=== PATIENT | female | born 1960 | race Caucasian/White ===

== ENCOUNTER 2024-03-26 11:03 | Observation (INO) ==
[~2024-03-26 11:03] MED LIST: cefOXitin SOD 2,000 MG VIAL IV SCH
[2024-03-26 12:18] LABS: Basophils # (auto) 0.04 K/uL (0.00-0.20); Basophils % (auto) 0.4 %; Eosinophils # (auto) 0.03 K/uL (0.00-0.50); Eosinophils % (auto) 0.3 %; Hematocrit (blood only) 43.3 % (37.0-47.0); Hemoglobin 14.5 g/dl (12.0-16.0); Immature Granulocytes # (auto) 0.03 K/uL (0.01-0.20); Immature Granulocytes % (auto) 0.3 %; Lymphocytes # (auto) 1.99 K/uL (1.20-3.40); Lymphocytes % (auto) 18.8 %; Mean Corpuscular Hemoglobin 28.8 pg (25.0-34.0); Mean Corpuscular Hgb Conc 33.5 g/dL (32.0-36.0); Mean Corpuscular Volume 86.1 fL (80.0-100.0); Monocytes # (auto) 0.54 K/uL (0.11-0.59); Monocytes % (auto) 5.1 %; Neutrophils # (auto) 7.94 K/uL (1.40-6.50); Neutrophils % (auto) 75.1 %; Platelet Count 391 K/uL (130-400); RDW Coefficient of Variation 13.1 % (11.5-14.5); RDW Standard Deviation 40.6 fL (36.4-46.3); Red Blood Count 5.03 M/uL (4.20-5.40); White Blood Count 10.57 K/ul (4.8-10.8)
--- NOTE | 2024-03-26 12:22 | Emergency Department Note ---
Impression & Plan Incarcerated umbilical hernia ED Provider Note CHIEF COMPLAINT: Lower abdominal pain, redness, irreducible umbilical hernia HISTORY OF PRESENT ILLNESS: This 64-year-old female patient presents to the emergency department via private vehicle for evaluation of lower abdominal pain and redness. The patient states she was seen here 2 days ago for similar symptoms. She states at that time, it was not very red. She was scheduled for outpatient surgery evaluation for an irreducible umbilical hernia and is scheduled to see surgery next week. She states over the past 2 days, the redness and tenderness has been significantly worsening. She states she is passing gas and stool without difficulty. She denies any nausea or vomiting. She is eating and drinking okay. No fever or chills. Patient became concerned for possible infection, noticing there may have been some pus coming from the umbilicus. REVIEW OF SYSTEMS: A 10 system review of systems was performed with positives and pertinent negatives listed in the history of present illness. All other systems were reviewed and are negative. ALLERGIES: NKDA PHYSICAL EXAM: VITALS: Vitals are noted on the nurse's note and reviewed by myself. Vital signs stable. GENERAL: This is a 64-year-old female, in no acute distress, nondiaphoretic, well-developed well-nourished. SKIN: The skin was without rashes, erythema, edema, or bruising. There is no tenting of the skin. Capillary refill less than 2 seconds. HEAD: Normocephalic atraumatic. EYES: Conjunctivae without injection, sclerae without icterus. NECK: Supple without nuchal rigidity. No lymphadenopathy. Cervical spine is nontender. No JVD. HEART: Regular rate and rhythm without murmurs gallops or rubs. LUNGS: Clear to auscultation bilaterally without wheezes, rales or rhonchi. No retractions or accessory muscle use. ABDOMEN: Erythema extending from the umbilicus inferiorly. There is a darker purple in color bulge noted in the inferior aspect of the umbilicus. There is exquisite tenderness to palpation, the patient does not tolerate any palpation or examination of this area. There is no obvious purulent discharge. Abdomen was otherwise soft, nontender, without masses or organomegaly. Positive bowel sounds all 4 quadrants. MUSCULOSKELETAL: No muscle atrophy, erythema, or edema noted. Full range of motion without joint tenderness in all extremities. No tenderness to palpation. Normal gait. Strength 5/5 throughout. NEURO: Patient was alert and oriented to person place and time. No focal neurological deficits. An order was placed for continuous clinical research monitor. The monitor showed a normal sinus rhythm at a ventricular rate of 87 bpm, per my interpretation. EMERGENCY DEPARTMENT COURSE: The patient was seen and evaluated as above. I reviewed prior medical records to include labs and CT imaging which was completed less than 48 hours ago. IV access was obtained, labs were drawn. Labs reviewed. There is no significant leukocytosis or anemia. No thrombocytopenia. Renal, hepatic function and electrolytes without significant abnormality. Lipase 23. I did contact general surgery. I spoke with REAGAN Brady with general surgery. I did request that they consult on this patient. Please see general surgery dictation regarding ongoing management and care as well as final disposition of this patient. It appears that they took the patient to the operating room. I attest that I have personally reviewed the patient medication list. I attest that I have reviewed the patient's blood pressure and it was found to be elevated. GCS: 15 In the evaluation and treatment of this patient the following differential diagnoses were entertained: Incarcerated hernia, infection, cellulitis, abscess, malignancy, among others The chart was completed utilizing [employer] Speech voice recognition software. Grammatical errors, random word insertions, pronoun errors, and incomplete sentences are an occasional consequence of this system due to software limitations, ambient noise, and hardware issues. Any formal questions or concerns about the content, text, or information contained within the body of this dictation should be directly addressed to the provider for clarification. Past Med/Surg History Medical History Irreducible umbilical hernia Social History Smoking Status: Never smoker Preferred Language: Macedonian Feels Safe at Home: Yes Allergies Allergies Allergy/AdvReac Type Severity Reaction Status Date / Time No Known Allergies Allergy Mild Verified 03/26/24 13:21 Home Meds Home Medications Medication Instructions Recorded Confirmed ascorbic acid (vitamin C) 1,000 mg 1 PO DAILY 03/26/24 chewable tablet lisinopril 10 mg tablet 10 mg PO DAILY 03/26/24 03/26/24 multivitamin 1 PO DAILY 03/26/24 Results & Data (ED) Vital Signs Vital Signs - 24 hr 03/26/24 11:18 03/26/24 11:52 03/26/24 12:08 Temperature 37.3 C Temperature Source Temporal Artery Scan Pulse Rate 88 87 Pulse Rate [Apical] 85 Pulse Rhythm [Apical] Regular Pulse Strength [Apical] Normal Respiratory Rate 20 20 Respiratory Effort / Characteristics Non-Labored Spontaneous Non-Labored Spontaneous Respiratory Depth Normal Normal Respiratory Pattern Regular Blood Pressure 162/91 H Blood Pressure [Right Arm] 142/88 H Blood Pressure Mean 114 Blood Pressure Mean [Right Arm] 106 Blood Pressure Position [Right Arm] Pulse Oximetry 97 97 Oxygen Delivery Method Room Air Room Air Sepsis Recent Fever Within 48 Hours No Sepsis New/Unexplained Change in Mental Status No Sepsis Action Taken by Nursing No Action Required 03/26/24 13:25 Temperature 36.7 C Temperature Source Oral Pulse Rate Pulse Rate [Apical] 92 H Pulse Rhythm [Apical] Regular Pulse Strength [Apical] Normal Respiratory Rate 20 Respiratory Effort / Characteristics Non-Labored Spontaneous Respiratory Depth Normal Respiratory Pattern Regular Blood Pressure Blood Pressure [Right Arm] 171/94 H Blood Pressure Mean Blood Pressure Mean [Right Arm] 119 Blood Pressure Position [Right Arm] Semi-fowlers Pulse Oximetry 99 Oxygen Delivery Method Room Air Sepsis Recent Fever Within 48 Hours Sepsis New/Unexplained Change in Mental Status Sepsis Action Taken by Nursing Laboratory Data 03/26/24 12:06 03/26/24 12:06 Lab Results 03/26/24 Range/Units 12:06 WBC 10.57 (4.8-10.8) K/ul RBC 5.03 (4.20-5.40) M/uL Hgb 14.5 (12.0-16.0) g/dl Hct 43.3 (37.0-47.0) % MCV 86.1 (80.0-100.0) fL MCH 28.8 (25.0-34.0) pg MCHC 33.5 (32.0-36.0) g/dL RDW Std Deviation 40.6 (36.4-46.3) fL RDW Coeff of Mckenzie 13.1 (11.5-14.5) % Plt Count 391 (130-400) K/uL MPV 9.0 L (9.4-12.4) fL Immature Gran % (Auto) 0.3 % Neut % (Auto) 75.1 % Lymph % (Auto) 18.8 % [place] % (Auto) 5.1 % Eos % (Auto) 0.3 % Baso % (Auto) 0.4 % Neut # (Auto) 7.94 H (1.40-6.50) K/uL Lymph # (Auto) 1.99 (1.20-3.40) K/uL [place] # (Auto) 0.54 (0.11-0.59) K/uL Eos # (Auto) 0.03 (0.00-0.50) K/uL Baso # (Auto) 0.04 (0.00-0.20) K/uL Immature Gran # (Auto) 0.03 (0.01-0.20) K/uL Sodium 138 (136-145) mmol/L Potassium 4.6 (3.5-5.1) mmol/L Chloride 106 (98-107) mmol/L Carbon Dioxide 23 (21-32) mmol/L Anion Gap 9 (3-11) BUN 12 (6-23) mg/dl Creatinine 0.66 (0.6-1.2) mg/dl Est Cr Clr Drug Dosing 84.1 ml/min Est GFR ( Amer) 109.7 ml/min Est GFR (Non-Af Amer) 94.7 ml/min BUN/Creatinine Ratio 18.2 (10-20) Glucose 104 H (70-99(Fasting)) mg/dl Calcium 9.1 (8.6-10.3) mg/dl Total Bilirubin 0.4 (0.2-1.0) mg/dl AST 19 (13-39) U/L ALT 14 (7-52) U/L Alkaline Phosphatase 64 (34-104) U/L Total Protein 7.4 (6.0-8.3) gm/dl Albumin 4.1 (3.4-5.0) gm/dl Globulin 3.3 (2.5-4.0) gm/dl Albumin/Globulin Ratio 1.2 (0.9-2) Lipase 23 (11-82) U/L Administered Medications Lactated Ringer's (Lr) 1,000 mls @ 0 mls/hr IV .Q0M YVONNE Stop: 04/25/24 13:59 Last Admin: 03/26/24 13:58 Dose: 15 mls/hr Documented By: ALN Discharge Plan Visit Data Chief Complaint: Skin Problem Stated Complaint: HERNIA WORSENING ED Provider: Stef Rand ED Midlevel Provider: Karina Leiva Discharge Problem: Incarcerated umbilical hernia Patient Disposition: Admitted As Inpatient Discharge Instructions Interventions: ED Discharge Assessment Last Done: 03/26/24 13:07 Forms Stand Alone Forms: [employer] Prescriptions Prescriptions: No Action lisinopril 10 mg tablet 10 mg PO DAILY Vitamin C 1,000 mg Tablet,Chewable 1 PO DAILY multivitamin Capsule 1 PO DAILY Referrals Referrals: Min Aceves MD [Primary Care Provider] -
[2024-03-26 12:38] LABS: Albumin Globulin Ratio 1.2 (0.9-2); Albumin Level 4.1 gm/dl (3.4-5.0); BUN Creatinine Ratio 18.2 (10-20); Bilirubin,Total 0.4 mg/dl (0.2-1.0); Calcium 9.1 mg/dl (8.6-10.3); Creatinine Clr Calc Pharmacy 84.1 ml/min; Est GFR (African American) 109.7 ml/min; Est GFR (Non-African American) 94.7 ml/min; Globulin 3.3 gm/dl (2.5-4.0); Potassium 4.6 mmol/L (3.5-5.1); Total Protein 7.4 gm/dl (6.0-8.3)
--- NOTE | 2024-03-26 12:55 | History & Physical Report ---
Date of Service March 26, 2024 Assessment & Plan (1) Incarcerated umbilical hernia: Plan: Her CT images and results from 2 days ago were reviewed and interpreted by myself She likely has necrotic omentum in her hernia that is strangulated Plan on urgent open incarcerated umbilical hernia repair Consent was obtained, risks discussed including bleeding, infection, recurrence, seroma/hematoma History of Present Illness Chief Complaint: Umbilical Hernia Primary Care Provider: Min Aceves MD This is a 64 yo female who presented today with worsening abdominal pain over the last 3 days. This is at the umbilicus, sharp and without radiation. She was seen on 03/24, diagnosed with an incarcerated umbilical hernia and sent home. She came back today due to significant cellulitis of the umbilicus and abdominal wall. She has been eating without N/V. She has been passing flatus. Denies any previous abdominal surgeries. Denies any blood thinners. Allergies Allergy/AdvReac Type Severity Reaction Status Date / Time No Known Allergies Allergy Mild Unverified 09/17/15 21:38 Home Medications Medication Instructions Recorded Confirmed Type CEPHALEXIN (KEFLEX) 1 cap PO TID 7 days #21 caps 12/17/15 Rx Past Med/Surg History Medical History Irreducible umbilical hernia Social History Smoking Status: Never smoker Preferred Language: Mauritian Feels Safe at Home: Yes Review of Systems Constitutional: no fever and no chills Eyes: no blind spots and no worsening vision Ear, Nose, Mouth, Throat: no ear pain and no hearing loss Respiratory: no cough and no dyspnea Cardiovascular: no chest pain and no dyspnea on exertion Gastrointestinal: + abdominal pain; no nausea and no vomit ing Genitourinary: no dysuria and no difficulty urinating Musculoskeletal: no back pain and no neck pain Integumentary: + erythema; no skin ulcer Neurologic: no gait abnormality and no memory loss Psychiatric: no behavioral changes and no depression Hematologic / Lymphatic: no easy bleeding and no easy bruising Physical Exam Constitutional: WD/WN, vitals as above Eyes: PERRL, conjunctivae normal, anicteric sclerae ENMT: external ear and nose normal, oropharynx normal Neck: trachea midline, no thyromegaly Respiratory: normal respiratory effort, lungs clear to auscultation Cardiovascular: RRR, no murmur, no edema Gastrointestinal (Abdomen): Inspection/Auscultation: + visible herniation; + abdomen abnormal to inspection and abdomen not distended Percussion/Palpation: + abdomen tender (periumbilically), + guarding, abdomen soft and + hernia (Incarcerated umbilical hernia with surrounding cellulitis) Musculoskeletal: no cyanosis or clubbing, extremities motor strength 5/5 Skin: no rashes, warm and dry Neurologic: PERRL, EOMI, accommodation nl, no face palsy, no dysarthria Psychiatric: A+Ox3, euthymic affect Results & Data Results & Data Vital Signs (Past 12 Hours) Vital Signs Temp Pulse Pulse Resp BP BP Pulse Ox 03/26/24 12:08 87 03/26/24 11:52 85 20 142/88 H 97 03/26/24 11:18 37.3 C 88 20 162/91 H 97 O2 Del Method 03/26/24 12:08 03/26/24 11:52 Room Air 03/26/24 11:18 Room Air PG Care Time/CCT Total # of Minutes Spent Total Time Spent with Patient: Total time spent is greater than 50% in coordination of care (as documented) at patient's floor/unit and/or counseling patient: Coding Level of Care Code 24458 INT INP/OBS CARE 3/75MIN Diagnoses Incarcerated umbilical hernia K42.0
[2024-03-26] MEDS ORDERED: MIDAZOLAM HCL 1 MG/ML 2ML VIAL ONE (13:02)
[2024-03-26] MEDS ORDERED: fentaNYL citrate PF 100 MCG/2 ML VIAL ONE ×2 (13:02→14:56)
[2024-03-26] MEDS ORDERED: fentaNYL citrate PF 100 MCG/2 ML VIAL IV PRN (13:11)
[2024-03-26] MEDS ORDERED: ONDANSETRON INJ 2 MG/ML 2 ML VIAL IV PRN ×2 (13:11→17:28)
[2024-03-26] MEDS ORDERED: ePHEDrine sulfate 50 MG/ML AMP IV PRN (13:11)
[2024-03-26] MEDS ORDERED: ATROPINE SULFATE 0.1 MG/ML 10ML SYR IV PRN (13:11)
--- NOTE | 2024-03-26 13:11 | Anesthesiology Consultation ---
Date of Service March 26, 2024 Assessment & Plan Chart Review Chart Review: main entree cook and cashier initiated History Surgery Operation Date: 03/26/24 11:50 Proposed Procedures p Open Umbilical Hernia Repair, Possible Mesh - Ramsey Bryan DO Height/Weight Height: 5 ft 3 in Weight: 72.1 kg Allergies Allergy/AdvReac Type Severity Reaction Status Date / Time No Known Allergies Allergy Mild Unverified 09/17/15 21:38 Medications Home Medications Medication Instructions Recorded Confirmed Last Taken CEPHALEXIN (KEFLEX) 1 cap PO TID 7 days #21 caps 12/17/15 Unknown Past Medical History Medical History Irreducible umbilical hernia Social History Smoking Status: Never smoker Physical Exam Vital Signs Last Vital Signs Temp 99.1 F 03/26/24 11:18 Pulse 87 03/26/24 12:08 Resp 20 03/26/24 11:52 BP 142/88 H 03/26/24 11:52 Pulse Ox 97 03/26/24 11:52 O2 Del Method Room Air 03/26/24 11:52 Testing Laboratory Results 03/26/24 12:06 03/26/24 12:06
[2024-03-26] MEDS ORDERED: ONDANSETRON INJ 2 MG/ML 2 ML VIAL ONE (13:12)
[2024-03-26] MEDS ORDERED: LIDOCAINE 2% 2 ML VIAL/AMP(20MG/ML) INFIL ONE (13:12)
[2024-03-26] MEDS ORDERED: DEXAMETHASONE SOD INJ 4 MG/ML VIAL ONE (13:12)
[2024-03-26] MEDS ORDERED: SUCCINYLCHOLINE CHLORIDE 20 MG/ML 10 ML VIAL IV ONE (13:12)
[2024-03-26] MEDS ORDERED: ROCURONIUM BROMIDE 10 MG/ML 5 ML VIAL IV ONE (13:12)
[2024-03-26] MEDS ORDERED: PROPOFOL IV EMULSION 10 MG/ML 20 ML VIAL IV ONE (13:12)
[2024-03-26] MEDS: LACTATED RINGER'S 1,000 ML IV SCH ×2 (13:58→17:20)
[2024-03-26] MEDS ORDERED: cefOXitin SOD 1,000 MG VIAL ONE (14:24)
[2024-03-26] MEDS: cefOXitin 2,000 MG in DEXTROSE 5 % MINI-B 50 ML IV SCH ×2 (14:40→20:14)
[2024-03-26] MEDS ORDERED: LABETALOL HCL IV 5 MG/ML 20ML IV ONE (15:07)
[2024-03-26] MEDS ORDERED: KETOROLAC 30 MG/ML VIAL ONE (15:19)
[2024-03-26] MEDS ORDERED: SUGAMMADEX SODIUM 200 MG/2 ML VIAL IV ONE (15:19)
[2024-03-26] MEDS: BUPIVACAINE/EPINEPHRINE 0.25% 1:200,000 30 ML VIAL ONE (15:30)
--- NOTE | 2024-03-26 15:35 | Post Operative Brief Note ---
PG Immediate Post Op with CF Date of Surgery March 26, 2024 Pre & Post Diagnosis Operation Date: 03/26/24 11:50 Pre-Op Diagnosis: Incarcerated umbilical hernia. Post-Op Diagnosis: Incarcerated umbilical hernia. I identified the patient and participated in the time-out.: Yes Procedure Operation Date: 03/26/24 11:50 Actual Procedures p Open Incarcerated Umbilical Hernia Repair - Ramsey Bryan DO Surgeon Ramsey Bryan DO Garbage Collector Driver Marge KIRK Estimated Blood Loss 10 Findings See Below Necrotic peritoneum and fat Specimens Specimen Description: A. Hernia sac. Anesthesia Type General Complications none Disposition Disposition: Recovery Room
[2024-03-26] MEDS ORDERED: oxyCODONE HCL IR 5 MG TAB (IMMEDIATE RELEASE) PO PRN ×2 (17:28)
[2024-03-26] MEDS ORDERED: MoRPHine SULFATE 4 MG/ML 1 ML CARP\\VIAL IV PRN (17:28)
[2024-03-26] MEDS ORDERED: MoRPHine SULFATE 2 MG/ML CARP IV PRN (17:28)
--- NOTE | 2024-03-26 17:42 | Anesthesiology Progress Note ---
Date of Service March 26, 2024 Anesthesia Post Procedure Vital Signs Vital Signs: Temp Pulse Pulse Resp BP BP BP 03/26/24 17:05 81 15 156/83 H 03/26/24 16:55 75 14 139/83 03/26/24 16:45 77 13 159/89 H 03/26/24 16:35 36.5 C 78 12 171/93 H 03/26/24 16:25 77 13 181/90 H 03/26/24 16:15 78 12 168/99 H 03/26/24 16:05 78 17 176/92 H 03/26/24 15:55 80 13 175/98 H 03/26/24 15:46 36.9 C 86 23 174/93 H 03/26/24 13:25 36.7 C 92 H 20 171/94 H 03/26/24 12:08 87 03/26/24 11:52 85 20 142/88 H 03/26/24 11:18 37.3 C 88 20 162/91 H Pulse Ox O2 Del Method O2 Flow Rate 03/26/24 17:05 96 Nasal Cannula 2 03/26/24 16:55 96 Nasal Cannula 2 03/26/24 16:45 96 Nasal Cannula 2 03/26/24 16:35 96 Nasal Cannula 2 03/26/24 16:25 96 Nasal Cannula 2 03/26/24 16:15 92 Room Air 03/26/24 16:05 97 Oxymask 6 03/26/24 15:55 96 Oxymask 8 03/26/24 15:46 92 Oxymask 10 03/26/24 13:25 99 Room Air 03/26/24 12:08 03/26/24 11:52 97 Room Air 03/26/24 11:18 97 Room Air Pain Intensity Medial Abdomen: Pain Intensity: 2 Transfer of Care Handoff Completed per policy Notes Mental Status: alert / awake / arousable Patient Amnestic to Procedure: Yes Nausea / Vomiting: adequately controlled Pain: adequately controlled Airway Patency, RR, SpO2: stable & adequate BP & HR: stable & adequate Hydration State: stable & adequate Anesthetic Complications: no major complications apparent
--- NOTE | 2024-03-26 18:00 | Operative Report ---
PG Post Operative Report Pre & Post Diagnosis Operation Date: 03/26/24 11:50 Pre-Op Diagnosis: Incarcerated umbilical hernia. Post-Op Diagnosis: Incarcerated umbilical hernia. I identified the patient and participated in the time-out.: Yes Procedure Operation Date: 03/26/24 11:50 Actual Procedures p Open incarcerated umbilical Hernia Repair - Ramsey Bryan DO Surgeon Ramsey Bryan DO [employer] Marge KIRK Estimated Blood Loss 10 Findings See Below Necrotic fat and peritoneum Specimens Hernia sac and contents to pathology Drains None Anesthesia Type General Complications none Disposition Disposition: Recovery Room Indications 64-year-old female with an incarcerated umbilical hernia Description of Procedure The patient was brought to the OR and placed in the supine position with both arms abducted. At this time she underwent general endotracheal anesthesia without any problems. She was given appropriate pre-operative antibiotics. Her abdomen was prepped and draped in the usual sterile fashion. Timeout was called. The procedure was verified as Open incarcerated umbilical hernia repair, possible mesh. Surgical, anesthesia and nursing teams agreed and the procedure was begun. After injection of 0.25% Marcaine with epinephrine, a infraumbilical curvilinear incision was made using a #15 blade scalpel. This was carried down to the fascia using electrocautery. The umbilical stalk was then encircled using a Kirsten clamp. The hernia sac was then dissected off of the umbilical skin using blunt and sharp dissection. The hernia sac was entered and contained chronic fat and peritoneum. This was dissected free of the fascia and then clamped and stick tied using a 2-0 Vicryl and transected. The contents were sent to pathology. At this point the defect was apparent and measured 3.5cm. Due to concern for infection I opted not to use any mesh. The fascia was then cleared of any tissue so that healthy tissue could be used for repair. The defect was then closed using [id number] PDS suture. The wound was then irrigated until clear. Hemostasis was achieved using electrocautery. Hemostasis was complete. The umbilicus was then tacked down to the fascia using 3-0 Vicryl. 3-0 Vicryl was used to close the deep dermal layer and shannon were used to close the skin sterile dressing was applied. All needle and sponge counts were correct x 2. At this point the patient was awakened from anesthesia, extubated and transported to PACU in stable condition. The nurse practitioner was present and scrubbed for the entire case. She was essential in positioning, prepping and draping the patient, retraction and exposure, closure of the incision and placement of dressing. I attest to the content of the Intraoperative Record and any orders documented therein. Any exceptions are noted below.
[2024-03-26] MEDS ORDERED: hydrALAZINE HCL 20 MG/ML VIAL IV PRN (18:02)
[2024-03-26] MEDS: ACETAMINOPHEN 325 MG TAB PO PRN (18:28)
--- NOTE | 2024-03-26 22:08 | Electrocardiogram Report ---
Test Reason : Blood Pressure : / mmHG Vent. Rate : 086 BPM Atrial Rate : 086 BPM P-R Int : 158 ms QRS Dur : 088 ms QT Int : 376 ms P-R-T Axes : 065 009 054 degrees QTc Int : 449 ms Normal sinus rhythm Normal ECG When compared with ECG of 29-JAN-2013 14:36, No significant change was found Confirmed by Trevin Finn ([id number]) on 03/26/2024 10:07:48 PM Referred By: REFERRED SELF Confirmed By:Trevin Finn
--- OUTSIDE RECORDS SUMMARY | 2024-03-26 23:17 | External Medical Summary | Summary of Care ---
Author Name Unknown Organization [facility] Address [address] [address] Phone [phone] Care Team Providers Care Digital Advertising Specialist Name Role Phone Min Aceves MD Primary Care Provider + Reason for Visit * Reason Comments Abdominal Pain Pt state she has abd pain and distention, pt states her umbilicus is protruding. Encounter Details Date Type Department Care Team (Late st Contact Info) Description 03/24/2024 11:20 AM EDT Office Visit Family Practice [facility] [address] [place] [address] Rowdy Mahajan MD [address] [facility] [place] [address] Umbilical hernia without obstruction and without gangrene* Allergies No known active allergiesdocumented as of this encounter (statuses as of 03/25/2024) Medications Medication Sig Dispensed Refills Start Date End Date Status Multiple Vitamins-Minerals (MULTI COMPLETE) Capsule Take 1 Cap by mouth daily. 0 Active Vitamin C 500 MG Oral Tablet (Ascorbic Acid) Take 1 Tablet by mouth in the morning. 0 Active D3 Adult 25 MCG (1000 UT) Oral Tablet Chewable (Cholecalciferol) Take by mouth . 0 Ac tive Lisinopril 10 MG Oral Tablet (Prinivil)Indication s:HTN, goal below 130/80 TAKE 1 TABLET BY MOUTH EVERY DAY IN THE MORNING 90 Tablet 0 02/17/2023 Active Diclofenac Sodium 1 % External Gel (Voltaren) Apply topically to affected area 4 times a day. Apply to right ankle. 2 g 11 02/27/2024 Active documented as of this encounter (statuses as of 03/25/2024) Active Problems Problem Noted Date Diagnosed Date Obesity, Class I, BMI 30.0-34.9 (see actual BMI) 03/24/2024 HTN, goal below 130/80 06/21/2020 Adenomyosis 07/15/2017 Overview: Appearance on US Fibroid, uterine 07/09/2017 documented as of this encounter (statuses as of 03/25/2024) Resolved Problems Problem Noted Date Diagnosed Date Resolved Date Chalazion left lower eyelid 06/16/2021 03/24/2024 Hordeolum externum of left lower eyelid 06/16/2021 01/14/2024 Pain and swelling of ankle, right 08/01/2018 01/14/2024 ADVANCE DIRECTIVE INFORMATION 09/24/2017 03/24/2024 Overview: No, Advance Directive brochure given to patient. Anemia 07/15/2017 01/14/2024 Overview: Likely due to menorrhagia, likely due to adenomyosis. Suggest daily iron, iron-rich diet, discussing with ASSISTANT PRODUCE MANAGER physician Elevated platelet count 07/15/201712/19 Overview: Suggest discussing with PCP Elevated CA-125 07/09/2017 03/24/2024 Overview: repeating documented as of this encounter (statuses as of 03/25/2024) Immunizations Name Administration Dates Next Due COVID-19 mRNA, LNP-s, No Pre serve, 2-Dose Series (Moderna) 10/08/2021,01/07/2021,12/10/2020 Season Influenza, Cell Cultu re, 18+ Yrs, With Preserv (Flucelvax) 12/06/2013 Seasonal Influenza, PF, 6 M & above, IM , (FluLaval or Fluzone) 09/17/2023,09/21/2022,09/13/2021, 0 20,11/12/2019 TDAP (age 10 and older)(Boostrix) 03/22/2014 documented as of this encounter Social History Tobacco Use Types Packs/Day Years Used Date Smoking Tobacco: Former Cigarettes Q uit: 11/17/1997 Smokeless Tobacco: Never Alcohol Use Standard Drinks/Week Comments No 0 (1 standard drink = 0.6 oz pur e alcohol) PHQ-2 Answer Date Recorded PHQ Adult Total Score 0 01/14/2024 Hunger Vital Sign Answer Date Recorded Within the past 12 months, y ou worried that your food would run out before you got the money to buy more. Never true 01/14/20 24 Within the past 12 months, t he food you bought just didn't last and you didn't have money to get more. Never true 01/14/2024 Sex and Gender Information Value Date Recorded Sex Assigned at Female 05/04/2020 9:16 AM EDT Gender Identity Female 05/04/2020 9:16 AM EDT Sexual Orientation Straight 04/05/2020 9: 07 AM EDT Job Start Date Occupation Industry Not on file Not on file Not on file documented as of this encounter Last Filed Vital Signs Vital Sign Reading Time Taken Comments Blood Pressure 138/86 03/24/2024 11:30 AM EDT Pulse 86 03/24/2024 11:30 AM EDT Temperature 37.3 C (99.2 F) 03/24/2024 11:30 AM E DT Respiratory Rate 18 03/24/2024 11:30 AM EDT Oxygen Saturation 97% 03/24/2024 11:30 AM EDT Inhaled Oxygen Concentration - - Weight 72.6 kg (160 lb) 03/24/2024 11:30 AM EDT Height 154.9 cm (5' 1") 03/24/2024 11:30 AM EDT Body Mass Index 30.23 03/24/2024 11:30 AM EDT documented in this encounter Progress Notes * Rowdy Mahajan MD - 03/25/2024 2:11 PM EDT SUBJECTIVE: Hailey Kunz is a 64 year old female. Chief Complaint Patient presents with Abdominal Pain Pt state she has abd pain and distention, pt states her umbilicus is protruding. HPI: New onset of abdominal pain and distension. Umbilicus is protruding. Noticed yesterday. No severe pain or systemic symptoms. No changes in bowel or bladder habits. Reports tenderness with pressure over umbilicus. Abdominal exam reassuring. Patient very nervous about this. Reassurance provided. Showed patient pictures of umbilical hernias. Patient Active Problem List Diagnosis Code Fibroid, uterine D25.9 Adenomyosis N80.03 HTN, goal below 130/80 I10 Obesity, Class I, BMI 30.0-34.9 (see actual BMI) E66.9 Current Outpatient Medications Medication Sig Dispense Refill Multiple Vitamins-Minerals (MULTI COMPLETE) Capsule Take 1 Cap by mouth daily. Vitamin C 500 MG Oral Tablet (Ascorbic Acid) Take 1 Tablet by mouth in the morning. D3 Adult 25 MCG (1000 UT) Oral Tablet Chewable (Cholecalciferol) Take by mouth . Lisinopril 10 MG Oral Tablet (Prinivil) TAKE 1 TABLET BY MOUTH EVERY DAY IN THE MORNING 90 Tablet 0 Diclofenac Sodium 1 % External Gel (Voltaren) Apply topically to affected area 4 times a day. Applyto right ankle. 2 g 11 No current facility-administered medications for this visit. Allergy: Review of patient's allergies indicates: No Known Allergies OBJECTIVE: BP 138/86 | Pulse 86 | Temp 37.3 C (99.2 F) (Tympanic) | Resp 18 | Ht 1.549 m (5' 1") | Wt 72.6kg (160 lb) | LMP 11/17/2019 | SpO2 97% | BMI 30.23 kg/m | BSA 1.77 m Gen: nad Abdomen: small reducible umbilical hernia; otherwise normal abdominal exam ASSESSMENT AND PLAN: (K42.9) Umbilical hernia without obstruction and without gangrene (primary encounter diagnosis) Plan: US ABDOMEN LIMITED -reassurance given; will discuss mgmt pending ultrasound results Follow up as needed. No other complaints were offered at this time. Rowdy Mahajan MD documented in this encounter Nursing Notes * Lindsey Wells LPN - 03/24/2024 11:30 AM EDT The patient has been properly identified by confirmation of name and date of . Chief Complaint Patient presents with Abdominal Pain Pt state she has abd pain and distention, pt states her umbilicus is protruding. documented in this encounter Plan of Treatment Upcoming Encounters Date Type Department Care Team (Late st Contact Info) Description 04/19/2024 9:15 AM EDT Imaging Radiology [facility] [address] [facility] [place] [address] [place] [address] 03/23/2025 8:30 AM EDT Office Visit Gynecology/Obstetrics [facility] [address] [place] [id number] Lexie Roman CRNP [address] [place] [address] Health Maintenance Due Date Last Done Comments Albumin/Creatinine Ratio 1980 HPV/Co-Test 1992 Colonoscopy 2007 Fecal Occult Blood Test 2007 Sigmoidoscopy 2007 Zoster Vaccines (1 of 2) 2012 COVID-19 Vaccine ( - season) 2023 10/08/2021, 01/07/2021, 12/10/2020 Pap Smear 10/04/2023 10/04/2020, 06/18, 07/09/2017, Additional history exists Mammogram 03/20/2024 03/20/2023, 01/15, 01/16/2021, Additional history exists DTaP,Tdap,and Td Vaccines (2 - Td or Tdap) 03/22/2024 03/22/2014 Cologuard 05/16/2024 05/16/2021, 04/18, 04/20/2018 Colorectal Cancer Screening 05/16/2024 GFR 07/01/2024 07/01/2023, 12/19, 09/13/2021, Additional history exists Depression Screening 01/14/2025 01/14/2024 Cervical Cancer Screening 10/04/2025 Po stponed from 10/04/2023 (Other) Diabetes Screening 07/01/2026 07/01/2023, 0 01/08/2022, 09/13/2021, Additional history exists Lipid Panel 07/01/2028 07/01/2023, 04/17, 07/15/2017, Additional history exists Influenza Vaccine (FLU shot) Completed 09/17/2023, 09/21/2022, 09/13/2021, Additional history exists GARDASIL-HPV IMMUNIZATION SERIES Aged Out No longer eligible based on patient's age to complete this topic Hepatitis B Aged Out No longer eligi ble based on patient's age to complete this topic MENINGOCOCCAL (MENACTRA/MENVEO) Aged Out No longer eligible based on patient's age to complete this topic Pneumococcal Vaccine: Pediatrics (0 to 5 Years) and At-Risk Patients (6 to 64 Years) Aged Out No longer eligible based on patient's age to complete this topic documented as of this encounter Medical Devices Not on filedocumented as of this encounter Results * US ABDOMEN LIMITED (03/25/2024 1:47 PM EDT) Anatomical Region Laterality Modality Abdomen, Body Ultrasound 03/25/2024 2:28 PM EDT Impressions 03/25/2024 2:25 PM EDT IMPRESSION An umbilical hernia which may contain incarcerated bowel loops, otherwise not adequately evaluated with ultrasound. A CT with IV contrast is suggested for further evaluation. Narrative 03/25/2024 2:25 PM EDT EXAM US ABDOMEN LIMITED-03/25/2024 1:47 pm HISTORY umbilical hernia COMPARISON None TECHNIQUE Limited abdominal ultrasound FINDINGS A focused ultrasound of the abdominal wall around the umbilicus was performed by the food service lead. There is an umbilical hernia which may contain incarcerated bowel loops, otherwise not adequately evaluated with ultrasound. Minimal free fluid is also seen in the hernia sac. Further evaluation with a contrast-enhanced CT is suggested. Procedure Note Isis Sawant MD - 03/25/2024 EXAM US ABDOMEN LIMITED-03/25/2024 1:47 pm HISTORY umbilical hernia COMPARISON None TECHNIQUE Limited abdominal ultrasound FINDINGS A focused ultrasound of the abdominal wall around the umbilicus wasperformed by the food service lead. There is an umbilical hernia which may contain incarcerated bowel loops,otherwise not adequately evaluated with ultrasound. Minimal free fluid isalso seen in the hernia sac. Further evaluation with a contrast-enhancedCT is suggested. IMPRESSION IMPRESSION An umbilical hernia which may contain incarcerated bowel loops, otherwisenot adequately evaluated with ultrasound. A CT with IV contrast issuggested for further evaluation. Rowdy Mahajan MD RAD ULTRASOUND documented in this encounter Visit Diagnoses Diagnosis Umbilical hernia without obstruction and without gangrene- Primary Umbilical hernia without obstruction and without gangrene documented in this encounter Care Teams Digital Advertising Specialist Relationship Specialty Start Date End Date Min Aceves MD [address] [place] [id number] PCP - General Family Medicine 01/14/24 documented as of this encounter
[2024-03-27] MEDS: lisinopril 10 MG TAB PO SCH (08:28)
--- NOTE | 2024-03-27 09:18 | Surgery Progress Note ---
Date of Service March 27, 2024 Assessment & Plan (1) Incarcerated umbilical hernia: Plan: Patient is POD #1- She is doing well without any new concerns or issues overnight. Incision is healing well with no signs of infection. Pain is controlled with PRN Tylenol. She feels that she is ready for discharge. Discharge instructions reviewed with Hailey. She is ok for discharge to home with follow-up with Dr. Bryan in 1-2 weeks. All questions answered. Admission and Anticipated Discharge Date Admission Date: March 26, 2024 Supervising Physician Co-Signing Physician Notes Doing well POD#1 open incarcerated umbilical hernia repair Tolerating a diet without N/V Incision looks good, erythema improved Will send her home today with 10 day course of Augmentin F/u with me in 2 weeks for staple removal Subjective Hailey standing in room, noting that she feels much better than when she came in. She reports that she is tolerating a regular diet. She is ambulating in room and hallway without issue. She denies nausea or vomiting. She does note that she developed some flushing of her face this morning. Did not wake up with this. Review of Systems Constitutional: as per Subjective / HPI; no fever and no chills Respiratory: no cough, no dyspnea, no dyspnea on exertion and no wheezing Cardiovascular: no chest pain, no chest pain at rest, no chest pain with activity, no radiating jaw, neck or arm pain, no dyspnea at rest, no lightheadedness and no calf pain Physical Exam Physical Exam: Dressing pulled back to view incision. Umbilical incision is clean, dry, intact and well-approximated. No signs of infection or evidence of incisional separation. Dressing reapplied. Constitutional: WD/WN, vitals as above Respiratory: normal respiratory effort; no respiratory distress and no labored breathing Results & Data Vital Signs (Past 12 Hours) Vital Signs Temp Pulse Resp BP Pulse Ox O2 Del Method 03/27/24 06:53 36.7 C 88 17 160/77 H 94 Room Air 03/27/24 04:32 36.5 C 79 16 165/79 H 97 Room Air 03/27/24 00:07 36.6 C 80 16 138/76 95 Room Air PG Care Time/CCT Total # of Minutes Spent Total Time Spent with Patient: Total time spent is greater than 50% in coordination of care (as documented) at patient's floor/unit and/or counseling patient: Coding Level of Care Code 79615 Post Operative Follow-Up Diagnoses Incarcerated umbilical hernia K42.0
--- NOTE | 2024-03-30 13:23 | Discharge Summary ---
Date of Service March 27, 2024 Admission HPI Per Admitting Provider This is a 64 yo female who presented today with worsening abdominal pain over the last 3 days. This is at the umbilicus, sharp and without radiation. She was seen on 03/24, diagnosed with an incarcerated umbilical hernia and sent home. She came back today due to significant cellulitis of the umbilicus and abdominal wall. She has been eating without N/V. She has been passing flatus. Denies any previous abdominal surgeries. Denies any blood thinners. Principal Diagnosis incarcerated umbilical hernia Discharge Exam Physical Exam: Dressing pulled back to view incision. Umbilical incision is clean, dry, intact and well-approximated. No signs of infection or evidence of incisional se paration. Dressing reapplied. Constitutional: WD/WN, vitals as above Respiratory: normal respiratory effort; no respiratory distress and no labored breathing Discharge Data Allergies Allergy/AdvReac Type Severity Reaction Status Date / Time No Known Allergies Allergy Mild Verified 03/26/24 13:21 Consultations 03/26/24 12:27 Consult General Surgery Stat Procedures Performed Operation Date: 03/26/24 11:50 Actual Procedures p Open Umbilical Hernia Repair - Ramsey Bryan, DO Hospital Course (1) Incarcerated umbilical hernia: Patient is a 64 yo female that presented to the [facility] ER 03/26/24 with c/o umbilical hernia with worsening cellulitis. She was seen on 03/24 in the ER, diagnosed with an incarcerated umbilical hernia and sent home. She came back today due to significant cellulitis of the umbilicus and abdominal wall. She was scheduled for an emergent open incarcerated umbilical hernia repair with Dr. Bryan. She was taken to the operating room and admitted post operatively for care and observation. Her diet was advanced and her pain was controlled and her VSS. She was deemed stable for discharge on 03/27/24. She was sent home with a prescription for oral antibiotics and pain medication. She was given discharge instructions and return precautions. Total Time Total Time Spent Total Time Spent (In Minutes): 20 Discharge Plan Discharge Items Patient Disposition: Home - Self-Care Reason For Visit: S/P OPEN UMBILICAL HERNIA REPAIR Discharge Diagnosis: open umbilical hernia repair Activity: As commented below Lifting: No more than 5 pounds Bathing Comment: you can shower 03/28/24. No pools or baths for 2 weeks Exercise/Sports: Wait until after follow-up appointment Driving/Machine Use: 1 week Non-emergency contact: Surgeon Call non-emergency contact if: you have any medication questions, your symptoms worsen, your pain is unusual for you, your temperature is above 101.5, your wound has increased redness, your wound has increased drainage and your wound pain has increased Follow-up/Referrals: Ramsey Bryan, [Physician] - (call office for a follow up in 2 weeks ) Min Aceves MD [Primary Care Provider] - Diet: Regular Addtl Attending Provider Instructions: You may remove your outer dressing on 03/28/24. You have shannon that will need to come out at your follow up appointment. Please keep surgical area clean and dry. You can apply gauze and tape for comfort, Change your dressing daily. You may purchase Tylenol and or Ibuprofen over the counter if needed for addition pain control over the next few days. Take per manufacturers instructions, Do not take more than 3 grams of Tylenol in 24 hours. You may ice on and off alternating every 20 minutes as needed to help with pain and swelling over the next few days. Pending Studies at Discharge: Yes Studies:: surgical pathology Stand-Alone Forms: My [facility] Medications and DC Order Prescriptions: New oxycodone 5 mg tablet 5 - 10 mg PO .[id number] MDD no more than 6 tabs in 24hours PRN (Reason: pain) Qty: 15 0RF amoxicillin-pot clavulanate 875-125 mg tablet 1 tab PO BID 10 Days Qty: 20 0RF Continued lisinopril 10 mg tablet 10 mg PO DAILY ascorbic acid (vitamin C) 1,000 mg Tablet,Chewable 1 PO DAILY multivitamin Capsule 1 PO DAILY Discharge Orders: Discharge Order (Routine); Ordered 03/27/24 Ordered By: Coretta Mcpherson/Other Patient Handouts: Oxycodone Oral Tablet, Amoxicillin/Clavulanate Oral Tablet, Open Hernia Repair Dc Admission Data Admit Date/Time: 03/26/24 15:46 Attending Provider: Ramsey Bryan Admit Provider: Ramsey Bryan Primary Care Provider: Min Aceves Other Providers: Ramsey Bryan Other Interventions: Discharge Summary Assessment (RN) Last Done: 03/27/24 08:37 Supervising Physician Co-Signing Physician Notes Doing well POD#1 open incarcerated umbilical hernia repair Tolerating a diet without N/V Incision looks good, erythema improved Will send her home today with 10 day course of Augmentin F/u with me in 2 weeks for staple removal Coding Level of Care Code 14630 IN/OBS DISCH 30 MIN/LESS Diagnoses Incarcerated umbilical hernia K42.0
== END 2024-03-27 10:20 | disposition home or self-care (01) ==
LOC: ED 11:03 → 3N 13:15 → OR 13:15